=== PATIENT | female | born 1990 | race Caucasian/White ===

== ENCOUNTER 2019-02-23 15:02 | Emergency (ER) | payer OTHER ==
[~2019-02-23] VITALS: Ht 160 cm; Wt 68.0 kg
[2019-02-23 15:07] VITALS: BP 138/97
[2019-02-23 15:08] VITALS: BP 138/97
--- NOTE | 2019-02-23 15:16 | NUR ---
PT AMB TO [facility]
--- NOTE | 2019-02-23 15:20 | NUR ---
101.2 FEVER IN TRIAGE
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
--- NOTE | 2019-02-23 15:26 | NUR ---
PTS L SHOULDER CLEANED AND DRIED
[2019-02-23] MEDS ORDERED: IBUPROFEN 800 MG TAB PO ONE (15:50)
--- NOTE | 2019-02-23 15:53 | NUR ---
MOTRIN ADMINISTERED PO FOR FEVER AND PAIN 04/28
--- NOTE | 2019-02-23 16:00 | NUR ---
PT CONTINUES TO YELL "SIGN ME THE FUCK OUT BITCH" AT STAFF AND PD
--- NOTE | 2019-02-23 16:03 | NUR ---
DR COUCH EVALUATING PT
--- NOTE | 2019-02-23 16:04 | NUR ---
PT DENIES AB PAIN, SORE THROAT, SOB, CP.
[2019-02-23] MEDS ORDERED: KETOROLAC 30 MG/ML VIAL IM ONE (16:10)
--- NOTE | 2019-02-23 16:15 | NUR ---
PT REFUSING TO GIVE URINE SAMPLE
--- NOTE | 2019-02-23 16:22 | NUR ---
PT TO XRAY VIA WHEELCHAIR.
--- NOTE | 2019-02-23 16:33 | NUR ---
PT RETURNED FROM XRAY VIA WHEELCHAIR.
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
--- NOTE | 2019-02-23 17:00 | NUR ---
PT REFUSING TEMPERATURE CHECK AT THIS TIME
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
== END 2019-02-23 17:25 ==
LOC: MED 15:02
DX: S00.83XA Contusion of other part of head, initial encounter (principal); S20.219A Contusion of unspecified front wall of thorax, initial encounter; S40.212A Abrasion of left shoulder, initial encounter; F10.129 Alcohol abuse with intoxication, unspecified; V43.52XA Car driver injured in collision with other type car in traffic accident, initial encounter; Y93.89 Activity, other specified; Y92.488 Other paved roadways as the place of occurrence of the external cause; Y99.8 Other external cause status
CPT/HCPCS: 71045; 72040; 73030; 96372; 99283; J1885